=== PATIENT | female | born 1940 | race Caucasian/White ===

== ENCOUNTER → 2016-03-30 | Outpatient (REF) | payer MEDICARE ==
[~2016-03-30] MED LIST: /WARF25TA OR; ACET65TA OR; AMIO10TA OR; ASPI81TA83 OR; BORON PO; CALCTAB93 PO; CHOND PO; CITRACAL; COPPER PO; Calcium; Calcium + Vit D PO; GLUC500T3 OR; GLUCOSAMINE PO; IBUPROPHEN PO; LIPI10TA OR; MAGNESIUM PO; MANGANESE PO; METO25TA2 OR; METROPROLOL PO; MULTCAP PO; NITROSTAT PO; PERC5TAB8 OR; RAMI25CA OR; VITA250T OR; ZINCLOZ9 PO
== END ==
LOC: M SMT 17:03
PROVIDERS: ATTEND Specialist
DX: N39.0 Urinary tract infection, site not specified (principal)
CPT/HCPCS: 81001; 81002; 87086; G0463

== ENCOUNTER → 2016-09-28 | Outpatient (CLI) | payer MEDICARE ==
[2016-09-28 10:19] LABS: BASO # 0.1 K/mm3 (0.0-0.2); BASO % 0.8 % (0.0-1.0); EOS # 0.2 K/mm3 (0.0-0.50); EOS % 3.2 % (0.0-3.0); LARGE UNSTAINED CELL # 0.1 K/mm3 (0.0-0.4); LARGE UNSTAINED CELL % 1.4 % (0.0-4.0); LYMPH # 1.3 K/mm3 (1.5-4.5); LYMPH % 17.3 % (24.0-44.0); MEAN CORPUSCULAR HEMOGLOBIN 31.7 pg (27.0-33.0); MEAN CORPUSCULAR HGB CONC 33.9 g/dl (32.0-36.5); MEAN CORPUSCULAR VOLUME 93.5 fl (80.0-96.0); MONO # 0.3 K/mm3 (0.0-0.8); MONO % 4.3 % (0.0-5.0); NEUTROPHILS # 5.2 K/mm3 (1.8-7.7); NEUTROPHILS % 72.9 % (36.0-66.0); PLATELET COUNT, AUTOMATED 237 k/mm3 (150-450); RED CELL DISTRIBUTION WIDTH 12.4 % (11.5-14.5); WHITE BLOOD COUNT 7.2 K/mm3 (4.0-10.0)
[2016-09-28 10:40] LABS: ERYTHROCYTE SEDIMENTATION RATE 12 mm/hr (0-30)
[2016-09-28 10:56] LABS: FREE T4 1.11 NG/DL (0.76-1.46)
[2016-09-28 10:58] LABS: FOLATE > 24.0 NG/ML; VITAMIN B12 LEVEL 992 PG/ML
[2016-10-03 00:09] LABS: VITAMIN E LEVEL 14.9 mg/L (6.5-21.5)
== END ==
LOC: M LAB 09:53
PROVIDERS: ATTEND Psychiatry & Neurology Neurology
DX: R41.0 Disorientation, unspecified (principal); R41.3 Other amnesia; Z13.29 Encounter for screening for other suspected endocrine disorder; Z13.1 Encounter for screening for diabetes mellitus

== ENCOUNTER → 2016-10-19 | Outpatient (CLI) | payer MEDICARE ==
--- NOTE | 2016-10-22 08:37 | REP ---
CT study of the brain without contrast: History: Altered mental status. No comparison studies. Findings: Preliminary digital burr sander radiograph is unremarkable. Bone window settings demonstrate an intact bony calvarium. There is vascular calcification in the carotid arteries and distal vertebral arteries bilaterally. Visualized paranasal sinuses are clear. No intraorbital abnormality is seen. On soft tissue window settings, there is minimal diffuse cerebral atrophy. Mild small vessel changes are seen in the periventricular white matter bilaterally. There is no evidence of intracranial hemorrhage. No mass, infarct, extra-axial fluid collection or midline shift is seen. Impression: Vascular calcification, mild diffuse cerebral atrophy and small vessel changes. No acute intracranial abnormality. Signed by Olayinka Merida MD 10/22/2016 10:15 A
== END ==
LOC: M RAD 16:49
PROVIDERS: ATTEND Psychiatry & Neurology Neurology
DX: R41.82 Altered mental status, unspecified (principal)

== ENCOUNTER → 2016-12-04 | Outpatient (CLI) | payer MEDICARE ==
[2016-12-04 14:03] LABS: ANION GAP 5 MEQ/L (8-16); BLOOD UREA NITROGEN 15 MG/DL (7-18); CALCIUM LEVEL 9.2 MG/DL (8.8-10.2); CARBON DIOXIDE LEVEL 33 MEQ/L (21-32); CHLORIDE LEVEL 100 MEQ/L (98-107); CREATININE FOR GFR 0.76 MG/DL (0.55-1.02); GLOMERULAR FILTRATION RATE > 60.0 (>39); GLUCOSE, FASTING 88 MG/DL (83-110); POTASSIUM SERUM 4.5 MEQ/L (3.5-5.1); SODIUM LEVEL 138 MEQ/L (136-145)
[2016-12-04 14:39] LABS: BACTERIA, URINE LARGE AMOUNT; HYALINE CAST, URINE NONE SEEN /lpf (0-1); MICROSCOPIC EXAM PERFORMED; SQUAMOUS EPITHELIAL CELL URINE SMALL AMOUNT /hpf (SMALL AMT)
== END ==
LOC: M LAB 12:29
PROVIDERS: ATTEND Specialist
DX: N39.0 Urinary tract infection, site not specified (principal)
CPT/HCPCS: 36415; 80048; 81015; 87088; 87186; G0463

== ENCOUNTER → 2016-12-28 | Outpatient (CLI) | payer MEDICARE ==
[~2016-12-28] MED LIST changes: +ISOVUE-370 76% 100ML VIAL (Q9967) As Ordered ONE
--- NOTE | 2016-12-28 12:19 | REP ---
CT UROGRAM: TECHNIQUE: Axial noncontrast images through the abdomen followed by contrast-enhanced images through the abdomen and pelvis using 100 mL Isovue 370 intravenous contrast material, with coronal and sagittal reformations. The visualized lung bases demonstrate mild fibrotic changes. Heart is mildly enlarged. The liver, spleen, adrenals, pancreas are unremarkable. No definite renal calculi are seen. A linear type calcification in the mid left renal pelvis does not appear to be within the collecting system and is likely vascular. There is no hydroureteronephrosis. No renal mass is seen. No ureteral abnormality is seen. Urinary bladder is not well visualized due to streak artifact from adjacent metallic prostheses bilaterally. There is no abdominal aortic aneurysm. I see no adenopathy. No bowel wall thickening is seen. There is no free air or free fluid. There is no gross pelvic mass. There is a tiny left inguinal hernia containing fat. IMPRESSION: No renal or ureteral calculus and no hydroureteronephrosis. No renal mass. No definite ureteral abnormality. No definite bladder abnormality but evaluation is limited due to streak artifact from bilateral metallic hip prostheses. Signed by Kike Lipscomb MD 12/31/2016 09:49 A
== END ==
LOC: M RAD 07:28
PROVIDERS: ATTEND Specialist
DX: N39.0 Urinary tract infection, site not specified (principal); Z96.641 Presence of right artificial hip joint; Z96.642 Presence of left artificial hip joint
CPT/HCPCS: 52281; 74178; G0463; Q9967

== ENCOUNTER → 2017-05-14 | Outpatient (REF) | payer MEDICARE ==
[2017-05-14 14:02] LABS: BACTERIA, URINE MOD AMOUNT; HYALINE CAST, URINE NONE SEEN /lpf (0-1); MICROSCOPIC EXAM PERFORMED; RBC, URINE NONE SEEN /hpf (0-3); SQUAMOUS EPITHELIAL CELL URINE SMALL AMOUNT /hpf (SMALL AMT); WBC, URINE 40-50 /hpf (0-3)
[2017-05-15 14:15] LABS: Candida species Negative (Negative); Gardnerella vaginalis Negative (Negative); Trichamonas vaginalis Negative (Negative)
== END ==
LOC: M SMT 13:18
DX: N39.0 Urinary tract infection, site not specified (principal)
CPT/HCPCS: 81015